=== PATIENT | female | born 1975 | race Caucasian/White ===

== ENCOUNTER 2017-07-30 10:54 | Day surgery (SDC) | payer OTHER ==
[~2017-07-30] VITALS: Ht 165.1 cm; Wt 80.7 kg
[2017-07-30] MEDS ORDERED: NEURONTIN600 MG/TAB PO (11:21)
[2017-07-30] MEDS ORDERED: GLUCOPHAGE500 MG/TAB PO (11:22)
[2017-07-30] MEDS ORDERED: PROZAC40 MG PO (11:23)
[2017-07-30] MEDS ORDERED: ROXICODONE15 MG PO (11:23)
[2017-07-30] MEDS ORDERED: LEVEMIR100 U/ML SQ (11:24)
[2017-07-30] MEDS ORDERED: VICTOZA6 MG/ML SQ (11:24)
[2017-07-30] MEDS ORDERED: NOVOLOG 100U100 U/M1 SQ (11:25)
[2017-07-30] MEDS ORDERED: VITAMIND3 5000 PO (11:26)
[2017-07-30 12:02] VITALS: BP 120/77; PULSE 81; TEMP 98.5
[2017-07-30 15:40] VITALS: BP 132/63; PULSE 95; TEMP 98.2
[2017-07-30 15:55] VITALS: BP 114/80; PULSE 87
[2017-07-30 16:15] VITALS: BP 115/596; PULSE 84
[2017-07-30 16:25] VITALS: BP 109/59; PULSE 90
[2017-07-30 16:55] VITALS: BP 118/64; PULSE 95
== END 2017-07-30 17:10 | disposition home or self-care (01) ==
LOC: SDCO 10:54
DX: K43.9 Ventral hernia without obstruction or gangrene (principal); Q79.59 Other congenital malformations of abdominal wall; F32.9 Major depressive disorder, single episode, unspecified; F41.9 Anxiety disorder, unspecified; E11.40 Type 2 diabetes mellitus with diabetic neuropathy, unspecified; Z79.4 Long term (current) use of insulin; F17.210 Nicotine dependence, cigarettes, uncomplicated; Z79.899 Other long term (current) drug therapy; G89.29 Other chronic pain; M54.9 Dorsalgia, unspecified
CPT/HCPCS: C1713; C1781; J0690; J1100; J1170; J1885; J2175; J2405; J2704; J2765; J3010; J7030